=== PATIENT | female | born 1995 | race Caucasian/White ===

== ENCOUNTER 2016-03-09 23:25 | Emergency (ER) | payer OTHER ==
[~2016-03-09] VITALS: Ht 160 cm; Wt 108.5 kg
[2016-03-09 23:30] VITALS: Ht 160 cm; Wt 108.5 kg
[2016-03-10] MEDS ORDERED: KETOROLAC 30 MG INJ IM STA (02:19)
[2016-03-10] MEDS ORDERED: CYCL-319 PO (02:20)
[2016-03-10] MEDS ORDERED: IBUP-1542 PO (02:20)
--- NOTE | 2016-03-10 02:37 | ERD ---
ER Documentation Chief Complaint Date/Time DATE: 03/10/16 TIME: 02:36 Chief Complaint lower back pain today HPI This is a 20-year-old female presenting to the emergency room complaining of bilateral lower back pain that started today. Patient states the pain was around 7 out of 10 earlier today but now it has come down while she was waiting for the ER. Patient denies any accident or trauma. She states pain is worse with movement. She denies taking any medications for this. Denies any urinary symptoms, fever abdominal pain. Denies saddle anesthesia, bladder or bowel incontinence ROS All systems reviewed and are negative except as per history of present illness. Medications Home Meds Active Scripts Cyclobenzaprine Hcl* (Cyclobenzaprine Hcl*) 10 Mg Tablet, 10 MG PO TID, #15 TAB Prov:BARI APONTE PA-C 03/10/16 Ibuprofen* (Motrin*) 600 Mg Tab, 600 MG PO Q6H Y for PAIN AND OR ELEVATED TEMP, #30 TAB Prov:BARI APONTE PA-C 03/10/16 Allergies Allergies: Coded Allergies: No Known Allergy (Unverified , 08/09/14) PMhx/Soc Medical and Surgical Hx: pt denies Medical Hx, pt denies Surgical Hx History of Surgery: No Anesthesia Reaction: No Hx Neurological Disorder: No Hx Respiratory Disorders: No Hx Cardiac Disorders: No Hx Psychiatric Problems: No Hx Miscellaneous Medical Probl: No Hx Alcohol Use: No Hx Substance Use: No Hx Tobacco Use: No Smoking Status: Never smoker Physical Exam Vitals Vital Signs Date Time Temp Pulse Resp B/P Pulse Ox O2 Delivery O2 Flow Rate FiO2 03/09/16 23:30 99.0 95 20 139/80 100 Physical Exam GENERAL: WD/WN, in no apparent distress, non-toxic appearing HENT: NC/AT EYES: Conjunctiva normal NECK: Supple PULM: Normal labored breathing CV: Good capillary refill GI: Non-distended, no guarding BACK: no deformities noted, normal spinal curvature, TTP on lumbar region bilaterally, non-tender on spine midline, EXT: No clubbing, cyanosis, or edema NEURO: Moves on all fours, sensation intact, normal gait SKIN: intact PSYCH: Normal mood Results 24 hrs Current Medications Medications (Trade) Dose Ordered Sig/Chan Route PRN Reason Start Time Stop Time Status Last Admin Dose Admin Ketorolac Tromethamine (Toradol) 30 mg ONCE STAT IM 03/10/16 02:19 03/10/16 02:20 DC Procedures/MDM 20-year-old female presents to the ER with lumbar back pain and muscle spasms, low suspicion for spinal abscess, vertebral fracture, cauda equina syndrome, spinal stenosis due to physical examination. Patient was nontender to palpation on spine midline in the ER patient was given Toradol. Patient is neurovascularly intact. Prescriptions ibuprofen and Flexeril was given to patient, discussed to return to the ED if not improving as expected or follow-up with a primary care physician. Patient understood and agreed with this plan. Departure Diagnosis: Primary Impression: Lower back pain Chronicity: acute Back pain laterality: bilateral Sciatica presence: without sciatica Qualified Code: M54.5 - Acute bilateral low back pain without sciatica Condition: Stable Patient Instructions: Self-Care for Low Back Pain, Possible Causes of Low Back or Leg Pain, Causes of Lumbar (Low Back) Pain Additional Instructions: Take all medicines as directed. You have been given a medicine which may cause drowsiness.DO NOT DRIVE OR OPERATE DANGEROUS MACHINERY while taking this medicine! FOLLOW UP WITH YOUR PRIMARY CARE PHYSICIAN TOMORROW.Return to this facility if you are not improving as expected. Return to this facility if you are not improving as expected. BARI APONTE PA-C Mar 10, 2016 02:37
== END 2016-03-10 02:50 | disposition home or self-care (01) ==
LOC: FTE 23:25
DX: M54.5 Low back pain (principal)
CPT/HCPCS: 96372; J1885; Z7502